=== PATIENT | male | born 1960 | race American Indian/Alaskan Native ===

== ENCOUNTER 2017-11-17 14:54 | Emergency (ER) | payer BC ==
[2017-11-17 14:55] VITALS: BMI 36.0
[2017-11-17 15:34] VITALS: TEMP 97.4
--- NOTE | 2017-11-17 15:45 | ED PDOC ---
Arrival/HPI - General Historian: Patient - History of Present Illness Time/Duration: 24 hours Symptom Onset: Gradual Symptom Course: Unchanged, Worsening Quality: Aching Activities at Onset: Rest - General Chief Complaint: Upper Extremity Problem/Injury Time Seen by Provider: 11/17/17 14:55 - History of Present Illness Narrative History of Present Illness (Text): 11/17/17 15:38 patient is a 57M with a PMH of HTN who comes to the ED sent from [facility] for L. Arm pain. States it started on Friday and is intermittent in nature. Nothing makes it worse and aspirin makes it better. States it radiates to his middle three fingers. Denies any chest pain, SOB, diaphoresis, Fevers, chills, nausea, vomiting, constipation, diarrhea. (Hernan Rosas) Past Medical History - Infectious Disease Hx of Infectious Diseases: None - Tetanus Immunization Tetanus Immunization: Unknown - Cardiac Hx Cardiac Disorders: Yes Hx Hypertension: Yes - Pulmonary Hx Respiratory Disorders: Yes Hx Asthma: Yes ( A CHILD) - Neurological Hx Neurological Disorder: No - HEENT Hx HEENT Disorder: No - Renal Hx Renal Disorder: No - Endocrine/Metabolic Hx Endocrine Disorders: No - Hematological/Oncological Hx Blood Disorders: No - Integumentary Hx Dermatological Disorder: No - Musculoskeletal/Rheumatological Hx Musculoskeletal Disorders: Yes Hx Falls: No - Gastrointestinal Hx Gastrointestinal Disorders: Yes (INGUINAL HERNIA REPAIR) - Genitourinary/Gynecological Hx Genitourinary Disorders: No - Psychiatric Hx Psychophysiologic Disorder: No (SMOKE H/O QUIT 12 YRS AGO.DRINKS BEER AND CLAUDIA ROSE EVERY 2-3 DAYS) Hx Depression: No Hx Emotional Abuse: No Hx Physical Abuse: No Hx Substance Use: No - Surgical History Hx Cardiac Catheterization: Yes - Anesthesia Hx Anesthesia Reactions: No Hx Malignant Hyperthermia: No - Suicidal Assessment Feels Threatened In Home Enviroment: No Family/Social History Family/Social History: Unknown Family HX Smoking Status: Former Smoker Hx Alcohol Use: Yes (EVRY 2-3 D BEER OR CLAUDIA ROSE) Hx Substance Use: No Hx Substance Use Treatment: No Allergies/Home Meds Allergies/Adverse Reactions: Allergies No Known Allergies Allergy (Verified 02/21/13 21:28) Home Medications: Home Meds Medication Instructions Recorded Confirmed Amlodipine Besylate [Amlodipine 10 mg PO DAILY 06/09/14 06/11/14 Besylate] Aspirin [Aspirin] 81 mg PO DAILY 02/07/14 02/09/14 Review of Systems - Review of Systems Constitutional: Normal Eyes: Normal ENT: Normal Respiratory: Normal Cardiovascular: Normal Gastrointestinal: Normal Genitourinary Male: Normal Musculoskeletal: Myalgias. absent: Back Pain, Neck Pain, Joint Swelling Skin: Normal Neurological: Normal Endocrine: Normal Hemo/Lymphatic: Normal Psychiatric: Normal Physical Exam Temperature: Afebrile Blood Pressure: Normal Pulse: Regular Respiratory Rate: Normal Appearance: Positive for: Well-Appearing, Non-Toxic, Comfortable Pain Distress: None Mental Status: Positive for: Alert and Oriented X 3 - Systems Exam Head: Present: Atraumatic, Normocephalic Pupils: Present: PERRL Extroacular Muscles: Present: EOMI Conjunctiva: Present: Normal Mouth: Present: Moist Mucous Membranes Neck: Present: Normal Range of Motion Respiratory/Chest: Present: Clear to Auscultation, Good Air Exchange. No: Respiratory Distress, Accessory Muscle Use Cardiovascular: Present: Regular Rate and Rhythm, Normal S1, S2. No: Murmurs Abdomen: Present: Normal Bowel Sounds. No: Tenderness, Distention, Peritoneal Signs Upper Extremity: Present: Normal Inspection, Normal ROM. No: Tenderness, Swelling, Erythema Lower Extremity: Present: Normal Inspection, Edema Neurological: Present: GCS=15, CN II-XII Intact Skin: Present: Warm, Dry, Normal Color. No: Rashes Psychiatric: Present: Alert, Oriented x 3 Vital Signs Temp Pulse Resp BP Pulse Ox 11/17/17 15:55 65 18 138/70 98 11/17/17 15:23 97.4 F L 68 16 141/72 99 11/17/17 15:07 98.4 F 77 16 122/83 99 Medical Decision Making ED Course and Treatment: 11/17/17 16:33 57 yo male presents to the ED c/o left arm pain x 2 days intermittently. Agree with resident note. No Chest pain, SOB or Lightheadedness. No n/v/d. No other complaints. DDx: Left Arm Strain vs Radiculopathy; no likely cardiac in nature Exam: Chest/Lungs: No tenderness, CTA b/l No w/r/r Left arm: left shoulder anteriorly feels sore on palpation, left ulnar nerve palpated on elbow feels sore as per patient. FROM. No weakness. +2 radial pulses. EKG NSR at 66 bpm with LVH and TWI in III, avF. No change from 02/07/14. Resident Hernan called [facility] that sent him and confirmed that they sent him because of EKG findings and Left arm pain. Clinically this presentation is most likely Radiculopathy. 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 Patient has a stress test set up for the middle of next month and cardiac followup. He was informed to return to the ED if symptoms worsen or any other concern. ( Paco Martinez) - PA / [employer] / Resident Statement MD/DO has reviewed & agrees with the documentation as recorded. MD/DO has examined the patient and agrees with the treatment plan. Disposition/Present on Arrival - Present on Arrival Any Indicators Present on Arrival: No History of DVT/PE: No History of Uncontrolled Diabetes: No Urinary Catheter: No History of Decub. Ulcer: No History Surgical Site Infection Following: None - Disposition Have Diagnosis and Disposition been Completed?: Yes Disposition Time: 15:48 Patient Plan: Discharge - Disposition Diagnosis: Left arm pain Disposition: HOME/ ROUTINE Condition: GOOD Additional Instructions: Please follow up with regular doctor in 7-10 days Please take medication as prescribed for Left arm pain If you experience chest pain or SOB please come back to the ED Mr Ortega thank you for letting us take care of you today. Your provider was Dr. Martinez and Dr. Dickson. You were treated for Left Arm Pain. The emergency medical care you received today was directed at your acute symptoms. If you were prescribed any medication, please fill it and take as directed. It may take several days for your symptoms to resolve. Return to the Emergency Department if your symptoms worsen, do not improve, or if you have any other problems. Please contact your doctor or call one of the physicians/clinics you have been referred to that are listed on the Patient Visit Information form that is included in your discharge packet. Bring any paperwork you were given at discharge with you along with any medications you are taking to your follow up visit. Our treatment cannot replace ongoing medical care by a primary care provider (PCP) outside of the emergency department. Thank you for allowing the [facility] team to be part of your care today. Prescriptions: Cyclobenzaprine [Flexeril] 5 mg PO TID PRN 30 Days #30 tab PRN Reason: Pain, Moderate (4-7) Forms: [facility] ([place])
[2017-11-17 15:57] VITALS: BP 138/70; PULSE 65; RESP 18; O2SAT 98
--- NOTE | 2017-11-17 18:54 | CARD ---
APPROVED REPORT EKG Measurement Heart [id number] <Conclusion> Normal sinus rhythm Voltage criteria for left ventricular hypertrophy Nonspecific T wave abnormality Abnormal ECG
== END 2017-11-17 15:57 | disposition home or self-care (01) ==
LOC: ED 14:54
DX: M79.602 Pain in left arm (principal); I10 Essential (primary) hypertension; Z87.891 Personal history of nicotine dependence